=== PATIENT | male | born 1930 | race African-American/Black ===

== ENCOUNTER 2018-06-12 20:45 | Emergency (ER) | payer OTHER ==
[~2018-06-12] VITALS: Ht 170.2 cm; Wt 81.8 kg
[2018-06-12 20:49] VITALS: BP 98/191; PULSE 95; RESP 15; Ht 170.2 cm; Wt 81.8 kg
[2018-06-12] MEDS ORDERED: morphine 2 MG INJ IV STA (21:08)
[2018-06-12] MEDS ORDERED: ONDANSETRON 4 MG INJ IV STA (21:08)
--- NOTE | 2018-06-12 23:40 | ERD ---
ER Documentation Chief Complaint Chief Complaint Left abd pain HPI This 88-year-old male who said right before coming in here tonight he had a sudden pain in his left upper quadrant and left mid abdomen at the mid axillary line. He said the pain was sharp and sudden and radiated down into the left lower quadrant. He had no chest pain and no shortness of breath. He has no history of kidney stones and did not have any nausea vomiting or diarrhea. No pain in his jaw elbows back shoulders. He says the pain is much better now. ROS All systems reviewed and are negative except as per history of present illness. Allergies Allergies: Coded Allergies: No Known Allergy (Unverified , 06/12/18) PMhx/Soc History of Surgery: Yes (Prostatectomy) Anesthesia Reaction: No Hx Neurological Disorder: No Hx Respiratory Disorders: No Hx Cardiac Disorders: Yes (HTN) Hx Psychiatric Problems: No Hx Miscellaneous Medical Probl: Yes (Pre-Diabetes;Prostate CA) Hx Alcohol Use: No Hx Substance Use: No Hx Tobacco Use: No Smoking Status: Never smoker FmHx Family History: No coronary disease Physical Exam Vitals Vital Signs Date Temp Pulse Resp B/P (MAP) Pulse Ox O2 O2 Flow FiO2 Time Delivery Rate 06/12/18 97.6 95 15 98/191 82 20:49 (160) Physical Exam Const: Well-developed, well-nourished Head: Atraumatic, normocephalic Eyes: Normal Conjunctiva, PERRLA, EOMI, normal sclera, no nystagmus ENT: Normal External Ears, Nose and Mouth, moist mucus membranes. Neck: Full range of motion. No meningismus, no lymphadenopathy. Resp: Clear to auscultation bilaterally, no wheezing, rhonchi, rales Cardio: Regular rate and rhythm, no murmurs, S1 S2 present Abd: Soft, very mild left mid abdominal tenderness, non distended. Normal bowel sounds, no guarding or rebound, no pulsitile abdominal masses or bruits Skin: No petechiae or rashes, no ecchymosis , no maculopapular rash Back: No midline or flank tenderness Ext: No cyanosis, or edema, FROM x 4, normal inspection, neurovascularly intact x 4 Neur: Awake and alert, STR 5/5 x 4, sensation intact x 4, no focal findings, cerebellum intact Psych: Normal Mood and Affect Result Diagram: 06/12/18205706/12/182057 Results 24 hrs Laboratory Tests Test 06/12/18 20:58 White Blood Count 6.0 10^3/ul Red Blood Count 4.66 10^6/ul Hemoglobin 13.5 g/dl Hematocrit 40.1 % Mean Corpuscular Volume 86.1 fl Mean Corpuscular Hemoglobin 29.0 pg Mean Corpuscular Hemoglobin Concent 33.7 g/dl Red Cell Distribution Width 13.8 % Platelet Count 160 10^3/UL Mean Platelet Volume 12.3 fl Immature Granulocytes % 0.200 % Neutrophils % 41.6 % Lymphocytes % 45.9 % Monocytes % 11.4 % Eosinophils % 0.7 % Basophils % 0.2 % Nucleated Red Blood Cells % 0.0 /100WBC Immature Granulocytes # 0.010 10^3/ul Neutrophils # 2.5 10^3/ul Lymphocytes # 2.7 10^3/ul Monocytes # 0.7 10^3/ul Eosinophils # 0.0 10^3/ul Basophils # 0.0 10^3/ul Nucleated Red Blood Cells # 0.0 10^3/ul Sodium Level 139 mmol/L Potassium Level 3.3 mmol/L Chloride Level 98 mmol/L Carbon Dioxide Level 28 mmol/L Anion Gap 13 Blood Urea Nitrogen 15 mg/dl Creatinine 1.08 mg/dl Est Glomerular Filtrat Rate mL/min mL/min Glucose Level 164 mg/dl Calcium Level 10.3 mg/dl Total Bilirubin 0.2 mg/dl Direct Bilirubin 0.00 mg/dl Indirect Bilirubin 0.2 mg/dl Aspartate Amino Transf (AST/SGOT) 27 IU/L Alanine Aminotransferase (ALT/SGPT) 10 IU/L Alkaline Phosphatase 58 IU/L Troponin I < 0.012 ng/ml Total Protein 8.4 g/dl Albumin 4.4 g/dl Globulin 4.00 g/dl Albumin/Globulin Ratio 1.10 Current Medications Medications Dose Sig/Del Start Time Status Last (Trade) Ordered Route PRN Stop Time Admin Dose Reason Admin Morphine 2 mg ONCE STAT 06/12/18 DC 06/12/18 Sulfate IV 21:08 21:24 (morphine) 06/12/18 21:10 Ondansetron 4 mg ONCE STAT 06/12/18 DC 06/12/18 HCl (Zofran IV 21:08 21:24 Inj) 06/12/18 21:10 Procedures/MDM Ordering MD: SHANKAR SUGGS DO Location: E/R Room/Bed: PROCEDURE: CT Abdomen and Pelvis without contrast. CLINICAL INDICATION: Left abdominal pain TECHNIQUE: CT scan of the abdomen and pelvis without contrast was performed on a multi-detector high-resolution CT scanner. The patient was scanned without IV contrast. Coronal and sagittal reformatted images were obtained from the axial source images. DICOM images are available. CTDI equals 16.55 mGy, and DLP equals 1019.94 mGy-cm. One or more of the following dose reduction techniques were used: - Automated exposure control. - Adjustment of the mA and/or kV according to patient size. - Use of iterative reconstruction technique. COMPARISON: None. FINDINGS: Images the of the liver demonstrate multiple hypodensities which are fairly well-circumscribed measuring up to 13 mm. No gallstones are seen within the gallbladder. There is no intra or extrahepatic ductal dilatation. The pancreas is unremarkable. The adrenal glands are prominent bilaterally without focal mass. Within the spleen is a hypodense lesion which measures approximate 2 cm. Images the kidneys demonstrate there are bilateral renal hypodensities however within the left largest hypodensity within the superior pole left kidney which measures 5.7 cm, is a hyperdense component on the peripheral edge which may represent a second lesion, measuring 2 cm.. There is nonspecific bilateral perinephric stranding. No hydronephrosis is seen. Images of the bowel loops demonstrate there are unremarkable without evidence of wall thickening or fatty stranding. Mild calcifications are seen throughout the aorta. No lymphadenopathy is seen. Images the pelvis demonstrate a few diverticula of the sigmoid colon without wall thickening. The appendix is visualized and is normal. Bladder is unremarkable. The prostate is mildly prominent measuring 4.6 x 5.7 x 5.4 cm. Small right inguinal hernia is present containing fat only. No free fluid is visualized. Osseous structures demonstrate scattered anterior spurs. The lung bases are clear. IMPRESSION: CT of the abdomen pelvis demonstrates hypodensities seen within the liver, spleen as well as kidneys likely representing cysts. Within the superior pole left kidney is a crescentic area of hyperdensity which could represent hemorrhage into the largest cyst versus an adjacent hemorrhagic cyst. Tiny hyperdensity is also seen within the right inferior renal pole measuring up to 5 mm. Mild sigmoid diverticulosis. Mildly prominent prostate. Small right inguinal hernia containing fat only. RPTAT: [facility] Physician Winifred Date Time Electronically viewed and signed by Mari Gonzalez Physician on 06/12/2018 22:30 RL/ CC: SHANKAR SUGGS DO [id number] Patient has a small hemorrhage into a cyst in the the superior portion of the left kidney. This is likely the source of his pain which does resemble a kidney stone/renal colic. Patient's labs are unremarkable so far. We will cover him with some Cipro pain medication and given warning signs to return Patient feels much better at this time, and vital signs are normal, symptoms have improved. I did give strict instructions to return to the ED if symptoms continue or worsen, patient will otherwise follow-up with primary care physician. Patient understood instructions and agreed to plan. Disclaimer: Inadvertent spelling and grammatical errors are likely due to EHR/dictation software use and do not reflect on the overall quality of patient care. Also, please note that the electronic time recorded on this note does not necessarily reflect the actual time of the patient encounter. Departure Diagnosis: Primary Impression: Hemorrhage of cyst of solomon kidney Condition: Stable SHANKAR SUGGS DO Jun 12, 2018 23:40
[2018-06-12] MEDS ORDERED: CIPR500T4 PO (23:41)
[2018-06-12] MEDS ORDERED: TRAM50TA2 PO (23:41)
== END 2018-06-13 00:18 | disposition home or self-care (01) ==
LOC: E/R 20:45
DX: N28.89 Other specified disorders of kidney and ureter (principal); I10 Essential (primary) hypertension; Z85.46 Personal history of malignant neoplasm of prostate
CPT/HCPCS: 74176; 80053; 84484; 85025; J2270; J2405; 36415; 93005; 96374; 96375